=== PATIENT | female | born 1975 | race Hispanic/Latino ===

== ENCOUNTER → 2018-05-26 | Outpatient (CLI) | payer BC | END | disposition home or self-care (01) | LOC: RAH 12:49 | PROVIDERS: ATTEND Neurological Surgery | DX: M53.2X7 Spinal instabilities, lumbosacral region (principal) | CPT/HCPCS: 78306; A9503 ==

== ENCOUNTER → 2018-06-23 | Outpatient (CLI) | payer BC ==
[~2018-06-23] MED LIST: IOHEXOL-350 75 ML VIAL IV ONE
== END | disposition home or self-care (01) ==
LOC: RAH 12:32
PROVIDERS: ATTEND Neurological Surgery
DX: M47.816 Spondylosis without myelopathy or radiculopathy, lumbar region (principal); M48.07 Spinal stenosis, lumbosacral region; M48.48XA Fatigue fracture of vertebra, sacral and sacrococcygeal region, initial encounter for fracture
CPT/HCPCS: 72133; Q9967